=== PATIENT | male | born 1980 | race Caucasian/White ===

== ENCOUNTER 2025-02-13 17:06 | Emergency (ER) | payer MEDICAID, SELFPAY ==
--- OUTSIDE RECORDS SUMMARY | 2025-02-13 17:08 | XMS_ITS | Clinical Summary ---
Author Organization [facility] Address [address] [place] [id number] Care Team Providers Care Shipping And Receiving Coordinator Name Role Phone Beltran Sanchez MD Primary Care Provider Allergies Active Allergy Reactions Criticality Noted Date Comments Penicillins Hives 08/14/2013 Medications ibuprofen (ADVIL; MOTRIN) 200 mg tablet Take 4 tablets by mouth 4 times daily if needed. 0 09/29/2014 Active FLUoxetine (PROZAC) 20 mg capsuleIndicati ons:Adjustment disorder with anxiety Take 2 capsules by mouth every morning. Fill upon patient request. 180 capsule 3 02/26/2016 Active clonazePAM (KLONOPIN) 1 mg tabletIndicatio ns:Anxiety TAKE ONE TABLET BY MOUTH TWICE DAILY NEEDED FOR ANXIETY 60 tablet 01/17/2017 Active busPIRone (BUSPAR) 5 mg tabletIndicatio ns:Anxiety TAKE ONE TABLET BY MOUTH THREE TIMES DAILY NEEDED FOR ANXIETY 30 tablet 01/16/2017 Active Active Problems Problem Noted Date Diagnosed Date Inguinal hernia 04/21/2014 History of kidney stones 02/17/2014 Sexually active 02/17/2014 Overview (02/17/2014): Male partner. Receptive anal intercourse and oral sex Encounters Date Type Department Care Team Description 02/13/2025 Travel from Last 3 Months Immunizations Immunization Administration Dates Next Due Hep B (Hepatitis B (Adult) Recombinant Adjuvanted) 01/12/2022 INFLUENZA, IIV3 PF (AGE >= 6 MO) 01/09/2024 Influenza RIV4 (Age 18+ Year s) PRESERV FREE 12/27/2022,01/18/2021,01/14/2020 Influenza, IIV4 01/13/2022, 6,01/23/2015,2013 Tdap 08/14/2013 Family History Medical History Relation Name Comments Diabetes Father Relation Name Status Comments Father Social History Tobacco Use Types Packs/Day Years Used Date Smoking Tobacco: Never Smokeless Tobacco: Never Tobacco Cessation:Counseling Given: Yes Alcohol Use Standard Drinks/Week Comments No 0 (1 standard drink = 0.6 oz pur e alcohol) Social Connections Answer Date Recorded Do you often feel lonely or isolated from those around you? 0 04/25/2024 Financial Resource Strain Answer Date R ecorded Difficulty of Paying Living Expenses 3 04/25/2024 Difficulty of Paying Living Expenses Not on file 04/25/2024 Food Insecurity Answer Date Recorded Do you worry your food will run out before you are able to buy more? 1 04/25/2024 Transportation Needs Answer Date Record ed Does lack of transportation keep you from medica l appointments? 1 04/25/2024 Does lack of transportation keep you from work, meetings or getting things that you need? 1 04/25/2024 Housing Stability Answer Date Recorded What is your housing situation today? 1 04/25/2024 Utilities Answer Date Recorded Do you have trouble paying f or utilities (for example, heat, electricity, water, phone)? 1 04/25/2024 Sex and Gender Information Value Date Recorded Sex Assigned at Not on file Legal Sex Male 5:25 AM PRACTICE ADMINISTRATOR Gender Identity Not on file Sexual Orientation Not on file Obstetrics History Last Filed Vital Signs Vital Sign Reading Time Taken Comments Blood Pressure 139/94 05/03/2024 8:14 AM PRACTICE ADMINISTRATOR Pulse 88 05/03/2024 8:14 AM PRACTICE ADMINISTRATOR Temperature 36.3 C (97.4 F) 05/03/2024 8:14 AM PRACTICE ADMINISTRATOR Respiratory Rate 16 04/24/2014 12:00 PM PRACTICE ADMINISTRATOR Oxygen Saturation 96% 05/03/2024 8:14 AM PRACTICE ADMINISTRATOR Inhaled Oxygen Concentration - - Weight 125.6 kg (277 lb) 05/03/2024 8:14 AM PRACTICE ADMINISTRATOR Height 175.3 cm (5' 9) 04/25/2024 9:11 AM PRACTICE ADMINISTRATOR Body Mass Index 40.91 04/25/2024 9:11 AM PRACTICE ADMINISTRATOR Plan of Treatment Upcoming Encounters Date Type Department Care Team (Late st Contact Info) Description 02/14/2025 10:20 AM PRACTICE ADMINISTRATOR Office [facility] [address] [facility] [address] April Rivas MD [address] [place] [id number] Health Maintenance Due Date Last Done Comments HPV series for age 9-45 (1 - 3-dose SCDM series) 2006 Depression screening for age 12+ 02/25/2017 02/26/2016 Hepatitis B series for 19+ (2 of 2 - CpG 2-dose series) 02/09/2022 01/12/2022 Tetanus booster 08/15/2023 08/14/2013 Colonoscopy through age 75 2024 Lipids for age 45-75 2024 08/14/2013 Influenza Vaccine (#1) 2024 , 12/27/2022, 01/13/2022, Additional history exists BMI (ht and wt on same day) for age 18+ 04/25/2025 04/25/2024, 02/26/2016 RSV vaccine for adults or (1 - 1-dose 75+ series) 2054 HIV for age 15-65 Completed 08/14/2013 Hepatitis C screening for age 18-79 Completed 08/14/2013 Pneumococcal series for age 6-49 Aged Out No longer eligible based on patient's age to complete this topic Medical Devices Implanted Type Area Erp Project Manager Device Identifier Shelf Expiration Date Model / Serial / Lot Mesh, 3d Max Light Lf Lg - Sna Implanted:Qty: 1 on 04/24/2014 by Petey Duarte MD at [facility] Left: Inguinal R-BARD 12/23/2018 [id number] / NA / [id number] Procedures Procedure Name Priority Date/Time Associated Diagnosis Comments ANTI HIV 1/2 Routine 08/14/2013 9:55 AM CDT Screen for STD (sexually transmitted disease) ANTI HCV Routine 08/14/2013 9:55 AM CDT Screen for STD (sexually transmitted disease) LIPID PANEL W REFLEX MEASURED LDL Routine 08/14/2013 9:55 AM CDT Screening for cardiovascular, respiratory, and genitourinary diseases from Last 3 Months or Most Recently Relevant to Health Maintenance Results * (ABNORMAL) LIPID PANEL W REFLEX MEASURED LDL (08/14/2013 9:55 AM CDT) Pathologist [facility] CHOLESTEROL,TOTAL 165 100 - 199 mg/dL 08/14/2013 10:48 AM T [facility] TRIGLYCERIDES 199(H) <150 mg/dL 08/14/2013 10:48 AM T [facility] HDL CHOLESTEROL 36(L) >40 mg/dL 4 10:48 AM [facility] NON-HDL CHOLESTEROL 129 <145 mg/dl 08/14/2013 10:48 AM [facility] CHOL/HDL RATIO 4.58(H) <4.50 08/14/2013 10:48 AM [facility] LDL CHOLESTEROL 89 <=130 mg/dL 08/14/2013 10:48 AM T [facility] PATIENT STATUS FASTING 08/14/2013 10:48 AM [facility] Blood specimen (specimen) BLOOD SPECIMEN / Unknown Venipuncture / Unknown 08/14/2013 9:55 AM CDT 08/14/2013 9:55 AM CDT us Beltran Sanchez MD CHEMISTRY Final R esult [address] [id number] * ANTI HCV (08/14/2013 9:55 AM CDT) HEPATITIS C ANTIBODY Non-Reacti ve Non-Reacti ve 08/14/2013 5:09 PM CDT [facility] Blood specimen (specimen) BLOOD SPECIMEN / Unknown Venipuncture / Unknown 08/14/2013 9:55 AM CDT 08/14/2013 9:55 AM CDT Narrative [facility] - 08/14/2013 5:09 PM CDT Antibodies to HCV not detected; does not exclude the possibility of exposure to HCV. Beltran Sanchez MD SEND OUTS Final R esult [facility] [address] [place] [address], [place] * ANTI HIV 1/2 (08/14/2013 9:55 AM CDT) HIV-1/HIV-2 ANTIBODY Non-Reacti ve Non-Reacti ve 08/14/2013 5:56 PM CDT [facility] Blood specimen (specimen) BLOOD SPECIMEN / Unknown Venipuncture / Unknown 08/14/2013 9:55 AM CDT 08/14/2013 9:55 AM CDT Narrative [facility] - 08/14/2013 5:56 PM CDT HIV-1 p24 and HIV-1/HIV-2 Ab not detected Beltran Sanchez MD SEND OUTS Final R esult [facility] [address] [place] [address], [place] from Last 3 Months or Most Recently Relevant to Health Maintenance [place] [address] [place] [address] [place] [id number] [place] [id number] ATTN A/P [address] [address] [place] [address] Advance Directives * Full Code (Latest Code Status on File) Date Activated Date Inactivated Comments 04/24/2014 6:24 AM 04/24/2014 2:47 PM * Full Code Date Activated Date Inactivated Comments 01/15/2014 6:20 AM 01/15/2014 9:20 PM Care Teams Shipping And Receiving Coordinator Relationship Specialty Start Date End Date Beltran Sanchez MD [address] [place] [address] PCP - General Family Practice 12/16/13
[2025-02-13 17:27] VITALS: BP 176/96; PULSE 78; RESP 22; TEMP 37; O2SAT 99; BMI 37.7
--- NOTE | 2025-02-13 17:39 | ED.GENADULT ---
HPI - General Adult General Time Seen by Provider: 17:39 Date Seen: 02/13/25 Chief complaint: Anxiety Stated complaint: HBP, Sent by urgent care Time Seen by Provider: 02/13/25 17:29 Source: patient Mode of arrival: ambulatory Limitations: no limitations History of Present Illness HPI narrative: Kody is a 44-year-old male past medical history includes depression and anxiety, hypertension presents emergency department from urgent care with elevated blood pressure reading. According to patient he takes propanolol, BuSpar, fluoxetine for his depression anxiety, he had been prescribed amlodipine for his blood pressure but has not been taking it. He woke up usually at 4:00 a.m. this morning, went about his day, he was on line this afternoon when he developed some nausea indigestion and sweating, felt like he was having a panic attack. Mother took his blood pressure was elevated. He then went to urgent care and they took his blood pressure and sent him over to the emergency department. Patient's symptoms have improved since being to the ED. patient has had panic attacks in the past. denies any chest pain or shortness of breath. Denies any alcohol or drug use. Patient does have a appointment with his provider tomorrow. Related Data Home Medications ?Medication ?Instructions ?Recorded ?Confirmed fluoxetine 40 mg capsule 40 mg PO DAILY 02/13/25 02/13/25 propranolol 10 mg tablet 10 mg PO BID 02/13/25 02/13/25 Allergies Allergy/AdvReac Type Severity Reaction Status Date / Time Penicillins Allergy Verified 02/13/25 17:25 Review of Systems Status of ROS: Reports: 10 or more systems reviewed and unremarkable except as noted in History and below Exam Narrative: Exam Narrative: General: No obvious distress sitting comfortably HEENT: TM wnl, PERRL Neck: supple Lungs: CTABL Heart: NSR, S1S2 Abdomen: soft, nt, bs present Neuro: GCS 15 Psych: Mood and affect normal Const: Vital Signs, click to edit/add: Vital Signs - 24 hr 02/13/25 17:27 02/13/25 18:09 02/13/25 19:02 Temperature 98.6 F Pulse Rate 89 90 Pulse Rate [Pulse Oximeter] 78 Respiratory Rate 22 Blood Pressure 167/103 H Blood Pressure [Ri ght Upper Arm] 176/96 H Pulse Oximetry 99 95 96 Oxygen Delivery Me thod Room Air 02/13/25 19:03 02/13/25 19:04 Temperature Pulse Rate 92 93 Pulse Rate [Pulse Oximeter] Respiratory Rate Blood Pressure 149/95 H Blood Pressure [Ri ght Upper Arm] Pulse Oximetry 94 94 Oxygen Delivery Me thod Course Course ED Course: ED course: 5:30 PM: aidet performed. Vitals show mildly elevated blood pressure 176/96, vitals otherwise normal, no signs clinically of hypertensive emergency or urgency, patient received 0.5 mg oral Ativan here in the emergency department, will obtain CBC, TSH, CMP, POC Troponin. Patient still has amlodipine prescription from his previous provider, he will likely just restart this medication, he has close follow-up tomorrow Reevaluation(s) Time of Reevaluation #1: 19:17 Reevaluation #1: Blood pressure improved 149/95, CBC showed no leukocytosis or anemia, comprehensive metabolic panel showed normal electrolytes, renal function and LFTs, mildly elevated blood glucose at 120, TSH pending. Point of care troponin 0.0. Patient is feeling better after above care given, he has proper follow-up with primary care provider tomorrow as scheduled, discussion on medications can be made at that time. Reason turned were given. Vital Signs Vital signs: Initial Vital Signs Temperature 98.6 F 02/13/25 17:27 Temperature Source Temporal Artery Scan 02/13/25 17:27 Pulse Rate 78 02/13/25 17:27 Respiratory Rate 22 02/13/25 17:27 Blood Pressure 176/96 H 02/13/25 17:27 Blood Pressure Mean 122 H 02/13/25 17:27 Pulse Oximetry 99 02/13/25 17:27 Oxygen Delivery Method Room Air 02/13/25 17:27 Vital Signs Temperature 98.6 F 02/13/25 17:27 Pulse Rate 78 02/13/25 17:27 Respiratory Rate 22 02/13/25 17:27 Blood Pressure 176/96 H 02/13/25 17:27 Pulse Oximetry 99 02/13/25 17:27 Oxygen Delivery Method Room Air 02/13/25 17:27 Temperature 98.6 F 02/13/25 17:27 Pulse Rate 93 02/13/25 19:04 Respiratory Rate 22 02/13/25 17:27 Blood Pressure 149/95 H 02/13/25 19:03 Pulse Oximetry 94 02/13/25 19:04 Oxygen Delivery Method Room Air 02/13/25 17:27 Medications Administered Medications: Discontinued Medications Generic Name Dose Route Start Last Admin Trade Name Roderick PRN Reason Stop Dose Admin Lorazepam 0.5 mg 02/13/25 17:53 02/13/25 17:57 Lorazepam 0.5 Mg Tablet PO 02/13/25 17:54 0.5 mg ONCE ONE Administration Medical Decision Making Lab Data Labs: Lab Results 02/13/25 02/13/25 Range/Units 17:53 18:02 WBC 9.94 (4.50-11.00) K/uL RBC 4.50 (4.30-5.90) m/uL Hgb 13.6 (13.5-17.5) gm/dL Hct 40.5 (37.0-53.0) % MCV 90 (80-100) fL MCH 30 (26-34) pg MCHC 34 (32-36) gm/dL RDW Coeff of Serina 11.9 (11.5-15.5) % Plt Count 288 (140-440) K/uL Neut % (Auto) 76.5 H (42.0-72.0) % Lymph % (Auto) 13.1 L (20-44) % Cla[place]orne % (Auto) 6.9 (0.0-11.0) % Eos % (Auto) 3.1 (0.0-7.0) % Baso % (Auto) 0.3 (0.0-3.0) % Neut # (Auto) 7.60 H (1.7-7.0) K/uL Lymph # (Auto) 1.30 (0.90-2.90) K/uL Cla[place]orne # (Auto) 0.70 (0.00-0.90) K/UL Eos # (Auto) 0.31 (0.00-0.50) K/uL Baso # (Auto) 0.03 (0.00-0.30) K/uL Abs Immat Gran (auto) 0.01 (0.00-0.30) K/uL Imm/Tot Granulo (auto) 0.1 % Sodium 136 (135-149) mmol/L Potassium 4.2 (3.6-5.1) mmol/L Chloride 105 (96-114) mmol/L Carbon Dioxide 25 (20-32) mmol/L Anion Gap 6 L (7-15) mEq/L BUN 13 (5-24) mg/dL Creatinine 0.8 (0.5-1.5) mg/dL Estimated Creat Clear 127.99 Estimated GFR 111 ml/min Glucose 120 H (60-115) mg/dL Calcium 9.7 (8.4-10.6) mg/dL Total Bilirubin 0.7 (0.1-1.5) mg/dL AST 26 (12-35) U/L ALT 39 (4-50) U/L Alkaline Phosphatase 80 (40-150) U/L Total Protein 7.7 (6.0-8.3) g/dL Albumin 4.3 (3.3-5.0) g/dL POC Troponin I 0.00 L (0.01-0.04) ng/ml Discharge Plan Discharge Clinical Impression: Anxiety, Elevated blood pressure reading Patient Disposition: Home, Self-Care Condition: Improved Instructions: Anxiety (ED) Additional Instructions: Follow-up with primary care provider tomorrow as scheduled. Activity Level: No Restrictions Prescriptions: No Action fluoxetine 40 mg capsule 40 mg PO DAILY propranolol 10 mg tablet 10 mg PO BID Follow Up/Referrals: Provider,Not a Local [Primary Care Provider, Family Practice] Stand Alone Forms: [employer] Info Instructions
[2025-02-13 18:08] LABS: Hematocrit* 40.5 % (37.0-53.0); Hemoglobin* 13.6 gm/dL (13.5-17.5); Immature Granulocytes Abs Auto 0.01 K/uL (0.00-0.30); Immature Granulocytes Pct Auto 0.1 %; Lymphocytes Absolute Auto 1.30 K/uL (0.90-2.90); Mean Corpuscular HGB Conc 34 gm/dL (32-36); Mean Corpuscular Hemoglobin 30 pg (26-34); Mean Corpuscular Volume 90 fL (80-100); RDW Coefficient of Variation % 11.9 % (11.5-15.5); Red Blood Count* 4.50 m/uL (4.30-5.90); White Blood Count* 9.94 K/uL (4.50-11.00)
[2025-02-13 18:09] VITALS: BP 167/103; PULSE 89; O2SAT 95
[2025-02-13 18:22] LABS: Troponin, Point-of-Care* 0.00 ng/ml (0.01-0.04)
[2025-02-13 18:23] LABS: Albumin* 4.3 g/dL (3.3-5.0); Chloride* 105 mmol/L (96-114); Sodium* 136 mmol/L (135-149)
[2025-02-13 18:24] LABS: Potassium* 4.2 mmol/L (3.6-5.1); Slide Review Reflex No
[2025-02-13 18:26] LABS: Alanine Aminotransferase* 39 U/L (4-50); Anion Gap 6 mEq/L (7-15); Aspartate Amino Transferase* 26 U/L (12-35); Blood Urea Nitrogen* 13 mg/dL (5-24); Carbon Dioxide* 25 mmol/L (20-32); Creatinine* 0.8 mg/dL (0.5-1.5); Est. Creatinine Clearance* 127.99; Estimated Glomerular Filt Rate 111 ml/min
[2025-02-13 18:27] LABS: Alkaline Phosphatase* 80 U/L (40-150); Bilirubin Total* 0.7 mg/dL (0.1-1.5); Calcium* 9.7 mg/dL (8.4-10.6); Glucose* 120 mg/dL (60-115); Total Protein* 7.7 g/dL (6.0-8.3)
[2025-02-13 19:02] VITALS: PULSE 90; O2SAT 96
[2025-02-13 19:03] VITALS: BP 149/95; PULSE 92; O2SAT 94
[2025-02-13 19:04] VITALS: PULSE 93; O2SAT 94
== END 2025-02-13 19:28 | disposition home or self-care (01) ==
PROVIDERS: Emergency Provider Student in an Organized Health Care Education/Training Program
DX: F41.9 Anxiety disorder, unspecified (principal); R03.0 Elevated blood-pressure reading, without diagnosis of hypertension; T46.1X6A Underdosing of calcium-channel blockers, initial encounter; Z91.148 Patient's other noncompliance with medication regimen for other reason
CPT/HCPCS: 36415; 80053; 84443; 84484; 85025; 99283; 99284; A9270